=== PATIENT | male | born 1960 | race Caucasian/White ===

== ENCOUNTER → 2018-10-02 | Outpatient (CLI) | payer BC ==
[2018-10-02] VITALS (23 sets, daily range): BP systolic 66–157; BP diastolic 41–100
[~2018-10-02] MED LIST: ARMOUR THYROID60 M1 PO; ASPIRIN EC81 M1 PO; AVELOX 400 MG400 MG PO; BENICAR40 MG PO; DIOVAN320 MG PO; EFFIENT10 MG PO; FLOMAX0.4 MG PO; LANSOPRAZOLE15 MG PO; LIPITOR 20 MG T20 M1 PO; NORVASC5 MG PO; PROTONIX 20 MG20 M1 PO; PROVENTIL INH; SIMVASTATIN40 MG PO; XARELTO20 MG PO
--- NOTE | 2018-10-04 17:22 | PROC ---
[address] [address] PROCEDURE REPORT Name: PATRICIA WATERS II Room: [facility]#: [id number] Admission: 10/02/18 Attend Phys: Jayme Banegas MD, F Discharge: Date of : 58 Report #: [id number] THIS REPORT FOR: //name// CC: Jayme Andres MD DATE OF SERVICE: 10/02/2018 TITLE OF PROCEDURE: Head upright tilt table testing using sublingual nitroglycerin. INDICATION: Syncope. RESULTS: Head upright tilt table testing was performed by obtaining heart rate and blood pressure recordings while the patient was supine and in the 70-degree head upright position. After 20 minutes, the patient was given nitroglycerin 0.4 mg sublingually. The patient had a baseline heart rate of 91, blood pressure 132/89. The rhythm strip appeared to show that the patient was in a sinus rhythm. The patient was then placed into the head upright position at 70 degrees. The patient denied any complaints at this time. The patient remained in sinus rhythm. There was no significant change in heart rate or blood pressure during this time. After 10 minutes, the patient had a blood pressure of 132/93, heart rate of 94 and he was in sinus rhythm. After 20 minutes in the head upright position, the patient had a heart rate of 98 and blood pressure 148/90. The patient was then given nitroglycerin 0.4 mg sublingually. The patient, 2 minutes later, complained of feeling warm. He was noted to develop sinus tachycardia. Heart rate of 120. The patient then complained of lightheadedness. He was noted to have a blood pressure of only 82/55 with a pulse of 100. The patient then became unresponsive and recorded blood pressure was 66/41 with a heart rate of 76 and he was in sinus rhythm. The patient was placed back into the supine position. He was then noted to have a blood pressure of 123/76, heart rate 74 and in sinus rhythm. Ten minutes later, the patient had no complaints, had a blood pressure of 115/76 with a pulse of 80. The patient tolerated the procedure well. IMPRESSION: 1. Positive head upright tilt table test for neurocardiogenic syncope. 2. The patient had a syncopal spell with a predominant vasodepressor response. 3. There was no evidence of a significant cardioinhibitory response. <ELECTRONICALLY SIGNED> By: Jayme Banegas MD, FACC 10/04/18 1722 [id number] [id number] Banegas MD, FACC /nt
== END | disposition home or self-care (01) ==
LOC: M.CL 13:20
DX: R55 Syncope and collapse (principal); Z79.899 Other long term (current) drug therapy; Z79.82 Long term (current) use of aspirin

== ENCOUNTER → 2018-11-19 | Outpatient (CLI) | payer BC ==
--- NOTE | 2018-11-19 16:43 | EXE ---
[place] [address] STRESS ECHOCARDIOGRAM Name: PATRICIA WATERS JR Room: [facility]#: [id number] Admission: 11/19/18 Attend Phys: Jayme Banegas MD Discharge: Date of : 58 Date of Service: 11/19/18 1643 Report #: [id number] THIS REPORT FOR: //name// APPROVED REPORT Study performed: 11/19/2018 11:59:14 Exam: Dobutamine Stress Echo Indication: Syncope Patient Location: Out-Patient Stress Nurse: Vesta Radford RN Supervising Physician: Ever Helton MD Ht: 6 ft 1 in HR: 78 bpm BP: 130/84 mmHg Medical History Medical History: CAD Cardiac Risk Factors: HTN, FHX of CAD Procedure The patient underwent a Pharmacological Stress Test using Dobutamine. Blood pressure, heart rate, and EKG were monitored. An Echocardiogram was performed by rf technician in four stages in quad fashion. At peak stress, four selected images were obtained and placed side by side with resting images for comparison. Stress Test Details Stress Test: Pharmacological Stress Test using Dobutamine. HR Resting HR: 78 bpm Max Heart Rate (APMHR): 161 bpm Max HR Achieved: 140 bpm Target HR (85% APMHR): 136 bpm % of APMHR: 86 Recovery HR: 92 bpm HR response to stress: Normal HR response to stress BP Resting BP: 130/84 mmHg Max BP: 163/61 mmHg Recovery BP: 139/86 mmHg BP response to stress: Normal blood [place] [address] STRESS ECHOCARDIOGRAM Name: PATRICIA WATERS JR Room: [facility]#: [id number] Admission: 11/19/18 Attend Phys: Jayme Banegas MD Discharge: Date of : 58 Date of Service: 11/19/18 1643 Report #: [id number] Resting ECG: Sinus Rhythm Stress ECG: Sinus Tachycardia ST Change: Normal Maximum ST Deviation: 0 mm Arrhythmia: None Recovery ECG: Sinus Rhythm Recovery ST Change: Normal Recovery ST Deviation: 0 mm Recovery Arrhythmia: None Clinical Reason for Termination: Completed protocol Pre-Stress Echo The resting Echocardiogram showed normal left ventricular contractility with an estimated Ejection Fraction of about 55-60%. Post-Stress Echo The stress Echocardiogram showed normal left ventricular contractility with an estimated Ejection Fraction of about 65-70%. Conclusion Clinical Response: Non-ischemic Stress ECG Response: Non-ischemic Stress Echo Images: Non-ischemic low risk dobutimine stress echo for future cardiac events Other Information Study Quality: Fair <Conclusion> low risk dobutimine stress echo for future cardiac events <ELECTRONICALLY SIGNED> By: Jayme Banegas MD, [facility] 11/19/181642 42 42 Jayme Banegas MD, [facility] /INF
== END ==
LOC: M.CRD 10:38
DX: I25.10 Atherosclerotic heart disease of native coronary artery without angina pectoris (principal)